=== PATIENT | female | born 1975 ===

== ENCOUNTER 2025-04-20 05:28 | Emergency (ER) | payer BC, SELFPAY ==
[2025-04-20 05:32] VITALS: BP 153/87
[2025-04-20 05:35] VITALS: BMI 38.6
--- NOTE | 2025-04-20 06:38 | ED.GENMED ---
History of Present Illness
General
Chief Complaint: DVT/Possible Blood Clot
Source: patient
Time Seen by Provider: 04/20/25 06:02
History of Present Illness
History of Present Illness:
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
prompting her to come to the ER. Patient states she cannot think of anything that would have provoked a DVT at this time, no recent travel, no trauma, currently not on any hormone replacement therapies, no recent surgeries. She is not on any
anticoagulants other than does take a daily 81 mg aspirin. She denies any chest pain, shortness of breath, cough, pleurisy, hemoptysis or any other concerns.
Past History
Past History
ED Past Medical History: Psychiatric and Other (PE, DVT)
ED Past Surgical History: Cholecystectomy
Social History
Tobacco: Non-smoker
Alcohol: None
Drug: None
Personal:
Living: with family
Employment: Employed
Family History
Family History: Negative CAD or Sudden
Review of Systems
Review of Systems
All Other Systems: ROS reviewed and negative except as documented in HPI and ROS
Phy Exam
Physical Exam
Physical Exam:
GENERAL: Alert , in no apparent distress
EYE: conjunctiva clear
Head: Normocephalic atraumatic
NECK: Supple,
ENT: mmm.
LUNGS: no acute respiratory distress
NEUROLOGICAL: Alert and oriented
SKIN: Warm and dry, skin intact.
MUSCULOSKELETAL: well perfused. varicose veins bilaterally, no color changes, warm, minimally tender, no overlying erythema
PSYCH: Normal and appropriate interaction.
Scores
Heart Failure Risk
Heart Failure Risk Score: Not Applicable
Heart Score for Chest Pain Patients
STEMI patient?: Not applicable
Withdrawal Assessment of Alcohol
Withdrawal Assessment Completed?: Not applicable
Course
Orders/Labs/Results
Orders:
Orders
04/20/25 05:40
US Periph Venous LOWER Ext LT Urgent
Comment:
Reason For Exam: pain left calf
Vital Signs
Initial and Last Documented VS:
Initial Vital Signs
Temp Pulse Resp BP Pulse Ox
97.9 F 90 18 153/87 98
04/20/25 05:32 04/20/25 05:32 04/20/25 05:32 04/20/25 05:32 04/20/25 05:32
Last Documented Vital Signs
Temp Pulse Resp BP Pulse Ox
97.9 F 90 18 114/65 100
04/20/25 05:32 04/20/25 05:32 04/20/25 05:32 04/20/25 07:00 04/20/25 07:00
MDM/Problems Addressed
Differential Diagnosis Includes:
Varicose Veins
DVT
PE
PAD
PVD
Phlebitis
MDM/Problems Addressed:
49-year-old female presenting to the ER for evaluation after noticing some discomfort in her left lower gastrocnemius region, palpable vein/cord, no overlying erythema. Patient has history of DVT/PE which is her main concern. Ultrasound ordered on
arrival. Disposition pending ultrasound results. Patient currently without any respiratory/pulmonary related symptoms.
Chronic conditions affecting care: Other (DVT/PE)
*Radiology
Radiology exam reviewed: radiology read reviewed
*Pulse Oximetry
SaO2: 99
Oxygen Mode of Delivery: Room air
Patient hypoxic: no
*Critical Care Note
Total Time (30-74mins, 75-104mins- exclusive of procedures): Not Applicable
Patient Management
Escalation/DeEscalation of care consider admission/obs:
Patient's ultrasound shows an acute nonocclusive superficial thrombosis in the left short saphenous vein. Patient does not require anticoagulation. Recommend warm compresses, NSAIDs/Tylenol as needed for pain. Encourage patient to follow-up with
primary care provider in the near future as she will likely need a repeat ultrasound to ensure resolution and no worsening of the thrombosis. Patient aware of return precautions to the ER. Stable for discharge home.
ED Attending Note
-
Portions of this chart may have been created with voice recognition software.� Occasional wrong word or��sound alike� substitutions may have occurred due to the inherent limitations of voice recognition software.
Discharge Plan
Departure
Patient Disposition: Home (Routine Discharge)
Date of Disposition: 04/20/25
Time of Disposition: 07:01
Patient with high blood pressure during this ER visit?: Yes
Discharge Problem:
Phlebitis
Instructions: Superficial vein phlebitis and thrombosis
Prescriptions:
No Action
aspirin 81 mg Tablet
81 mg PO PRN PRN (Reason: blood clot )
multivitamin Tablet
1 tab PO DAILY
Referrals:
Tiffanie Sales CRNP [Family Provider, General]
Interventions
Interventions:
*Risk Screen - Suicide Last Done: 04/20/25 05:32
*General Assessment Last Done: 04/20/25 05:32
*Neglect/Abuse Screening Last Done: 04/20/25 05:32
*ED- Fall Risk Assessment Last Done: 04/20/25 05:32
*ED COVID-19 Vaccine History Last Done: 04/20/25 05:32
*ED Influenza Vaccine History Last Done: 04/20/25 05:32
*Nursing Disposition Last Done: 04/20/25 07:06
ED- Cardiac Assessment Last Done: 04/20/25 06:28
ED- Pulmonary Assessment Last Done: 04/20/25 06:28
ED-Peripheral Vascular Assessment Last Done: 04/20/25 06:28
ED-Skin Assessment Last Done: 04/20/25 06:28
Discharge Date and Time
Discharge Date/Time: 04/20/25 07:07
Print Language: KOREAN
[2025-04-20 07:00] VITALS: BP 114/65
--- NOTE | 2025-04-20 07:04 | EDRN ---
Discharge instructions given to patient by Geremias Thapa PA-C.
== END 2025-04-20 07:07 | disposition home or self-care (01) ==
LOC: EMR 05:28
PROVIDERS: EMERGENCY PHYSICIAN Emergency Medicine; FAMILY PHYSICIAN Nurse Practitioner Adult Health
DX: I80.02 Phlebitis and thrombophlebitis of superficial vessels of left lower extremity (principal); M79.662 Pain in left lower leg; I83.93 Asymptomatic varicose veins of bilateral lower extremities; Z79.82 Long term (current) use of aspirin; Z90.49 Acquired absence of other specified parts of digestive tract; Z86.718 Personal history of other venous thrombosis and embolism; Z86.711 Personal history of pulmonary embolism; Z91.041 Radiographic dye allergy status
CPT/HCPCS: 99284; 93971